=== PATIENT | male | born 1990 | race Caucasian/White ===

== ENCOUNTER 2021-07-16 14:10 | Emergency (ER) | payer OTHER ==
[~2021-07-16] VITALS: Ht 182.9 cm; Wt 115.7 kg
== END 2021-07-16 17:07 | disposition home or self-care (01) ==
LOC: ER1 14:10
DX: U07.1 COVID-19 (principal); Z23 Encounter for immunization; J12.82 Pneumonia due to coronavirus disease 2019; F17.220 Nicotine dependence, chewing tobacco, uncomplicated
CPT/HCPCS: 99283; M0243